=== PATIENT | female | born 1985 | race Caucasian/White ===

== ENCOUNTER 2017-02-04 13:38 | Emergency (ER) ==
[2017-02-04 13:43] VITALS: BMI 43.4
[2017-02-04 14:02] LABS: BILIRUBIN,URINE Negative (NEGATIVE); KETONES,URINE Negative (NEGATIVE); LEUKOCYTE ESTERASE ,URINE Trace (NEGATIVE); NITRITE,URINE Negative (NEGATIVE); PROTEIN,URINE 1+ (NEGATIVE); URINE, BLOOD Trace-intact (NEGATIVE)
[2017-02-04 14:03] LABS: ADD URINE MICROSCOPIC YES
[2017-02-04 14:04] LABS: URINE PREGNANCY INTERNAL QC INTERNAL QC VALID
--- NOTE | 2017-02-04 14:04 | ED.PDOC ---
General ED Provider: Dr. CANDIS LE JR Chief Complaint: Nausea/Vomiting Stated Complaint: ate russian food yesterday then late last nite developed -- chiils with n/v and diarrhea--vomited 5 times last nite--diarrhea today--also had abd pain to umbilicus [ End ]101.8 125 20 96 8/10 Time Seen by Physician: 13:58 Mode of Arrival: Walk-In Information Source: Patient Exam Limitations: No limitations Nursing and Triage Documentation Reviewed and Agree: No Review of Systems - Review Of Systems Constitutional: Reports: Chills, Fever, Malaise, Weakness Eyes: Reports: No symptoms Ears, Nose, Mouth, Throat: Reports: No symptoms Respiratory: Reports: No symptoms Cardiac: Reports: No symptoms GI: Reports: Abdominal pain, Diarrhea, Nausea, Vomiting : Reports: No symptoms Musculoskeletal: Reports: No symptoms Skin: Reports: No symptoms Neurological: Reports: No symptoms Endocrine: Reports: No symptoms Hematologic/Lymphatic: Reports: No symptoms All Other Systems: Other Past Medical History - Past Medical History Previously Healthy: Yes Endocrine: Reports: None Cardiovascular: Reports: None Respiratory: Reports: None Hematological: Reports: None Gastrointestinal: Reports: None Genitourinary: Reports: None Neuro/Psych: Reports: None Musculoskeletal: Reports: None Cancer: Reports: None Last Menstrual Period: december 13 - Surgical History General Surgical History: Reports: ( october 08, 2016) - Family History Family History: Reports: None - Social History Smoking Status: Former smoker Hx Substance Use: No Alcohol Screening: None Physical Exam - Physical Exam Appearance: Well-appearing, Obese Ill-appearing: Mild Pain Distress: Mild Eyes: ARIAN, EOMI, Conjunctiva clear ENT: Ears normal, Nose normal, Oropharynx normal Neck: Supple Respiratory: Airway patent, Breath sounds clear, Breath sounds equal, Respirations nonlabored Cardiovascular: RRR, Pulses normal, No rub, No murmur GI/: Soft, Tender, Bowel sounds hyperactive Musculoskeletal: Normal strength, ROM intact, No edema, No calf tenderness Skin: Warm, Dry, Normal color Neurological: Sensation intact, Motor intact, Reflexes intact, Cranial nerves intact, Alert, Oriented Psychiatric: Affect appropriate, Mood appropriate Critical Care Note - Critical Care Note Total Time (mins): 15 Course - Course Hematology/Chemistry: 02/04/17 14:05 02/04/17 14:05 Orders, Labs, Meds: Lab Review 02/04/17 02/04/17 13:55 14:05 WBC 10.30 H RBC 4.31 Hgb 12.6 Hct 36.0 L MCV 83.5 MCH 29.2 MCHC 35.0 RDW Coeff of Faviola 13.1 Plt Count 212 Immature Gran % (Auto) 0.4 Neut % (Auto) 91.2 Lymph % (Auto) 5.2 L [place] % (Auto) 3.1 Eos % (Auto) 0.0 Baso % (Auto) 0.1 Immature Gran # (Auto) 0.0 Neut # 9.4 H Lymph # 0.5 L [place] # 0.3 L Eos # 0.0 Baso # 0.0 Sodium 139 Potassium 3.4 L Chloride 105 Carbon Dioxide 22 Anion Gap 15.4 BUN 9 Creatinine 0.63 Estimated GFR (MDRD) 109.00 BUN/Creatinine Ratio 14.28 Glucose 111 H Lactic Acid 10.5 Calcium 9.2 Total Bilirubin 0.83 AST 12 L ALT 15 Alkaline Phosphatase 90 Total Protein 7.8 Albumin 3.7 Globulin 4.1 Albumin/Globulin Ratio 0.90 Amylase 44 Lipase 26 Procalcitonin < 0.05 Urine Color Yellow Urine Clarity Clear Urine pH 7.0 Ur Specific [place] 1.020 Urine Protein 1+ Urine Glucose (UA) Negative Urine Ketones Negative Urine Blood Trace-intact Urine Nitrite Negative Urine Bilirubin Negative Urine Urobilinogen 0.2 Ur Leukocyte Esterase Trace Urine Microscopic RBC 2-5 Urine Microscopic WBC 2-5 Ur Squamous Epith Cells 10-20 Urine Bacteria 1+ Urine Test Negative H. pylori IgG Antibody Positive Orders Category Date Time Status ED CODING QUALITY ANALYST APPLIED .ONCE EMERGENCY 02/04/17 13:54 Active ED IV/MEDIPORT/POWERPORT .ONCE EMERGENCY 02/04/17 13:53 Active ED VITAL SIGNS Q1HR EMERGENCY 02/04/17 13:54 Active AMYLASE Stat LAB 02/04/17 14:05 Completed BLOOD CULTURE Stat LAB 02/04/17 14:05 Received CBC W/ AUTO DIFF Stat LAB 02/04/17 14:05 Completed COMPREHENSIVE METABOLIC PANEL Stat LAB 02/04/17 14:05 Completed H. PYLORI SCREEN Stat LAB 02/04/17 14:05 Completed LACTIC ACID Stat LAB 02/04/17 14:05 Completed LIPASE Stat LAB 02/04/17 14:05 Completed PROCALCITONIN Stat LAB 02/04/17 14:05 Completed STOOL CULTURE Stat LAB 02/04/17 Ordered URINALYSIS C & S IF INDICATED Stat LAB 02/04/17 13:55 Completed URINE CULTURE Stat LAB 02/04/17 13:55 Received URINE Stat LAB 02/04/17 13:55 Completed 0.9 % Sodium Chloride [Saline Flush] MEDS 02/04/17 13:53 Ordered 1 syr IVF PRN PRN Levofloxacin/D5w [Levaquin] 150 ml MEDS 02/04/17 14:28 Discontinued IV .STK-MED Levofloxacin/D5w [Levaquin] 750 mg MEDS 02/04/17 14:12 Discontinued Premix 150 ml D5w 1 bag IV ONCE Morphine Sulfate [Morphine 4 mg/ml Syringe] MEDS 02/04/17 15:17 Discontinued 4 mg IVP ONCE STA Sodium Chloride 0.9% [Sodium Chloride] 1,000 ml MEDS 02/04/17 15:[address] ABDOMEN/PELVIS WO CONTRAST Stat RADS 02/04/17 13:53 Completed Medications Generic Name Dose Route Start Last Admin Trade Name Freq PRN Reason Stop Dose Admin Sodium Chloride 1 syr 02/04/17 13:53 02/04/17 14:29 Saline Flush IVF 1 syr PRN PRN Administration To flush IV Discontinued Medications Generic Name Dose Route Start Last Admin Trade Name Freq PRN Reason Stop Dose Admin Levofloxacin/Dextrose 750 mg/ 150 mls @ 100 mls/hr 02/04/17 14:12 02/04/17 14 :29 Dextrose IV 02/04/17 15:41 100 mls/hr ONCE STA Administration Sodium Chloride 1,000 mls @ 1,000 mls/hr 02/04/17 15:17 02/04/17 14:15 Sodium Chloride IV 02/04/17 16:16 1,000 mls/hr BOLUS STA Administration Morphine Sulfate 4 mg 02/04/17 15:17 02/04/17 15:28 Morphine 4 Mg/Ml Syringe IVP 02/04/17 15:18 4 mg ONCE STA Administration Vital Signs: Temp Pulse Resp BP Pulse Ox 02/04/17 14:22 99.9 F H 112 H 20 118/77 95 02/04/17 13:39 101.8 F H 125 H 20 133/78 96 Departure - Departure Time of Disposition: 15:11 Disposition: HOME SELF-CARE Discharge Problem: Nausea, Vomiting, Gastroenteritis, Helicobacter positive gastritis Instructions: Gastroenteritis (ED), Helicobacter Pylori (ED) Condition: Good Pt referred to PMD for follow-up: Yes Additional Instructions: zofran for nausea clear liquids for 8-12 hours after vomiting plenty of fluids - avoid work until loose stools resolved recheck PMD discuss helicobacter and plan care before taking prevpac may use kristofer-bismol for loose stools Prescriptions: Ondansetron HCl [Zofran Tab] 4 mg PO QID PRN #12 tablet PRN Reason: Nausea / Vomiting Allergies/Adverse Reactions: Allergies No Known Allergies Allergy (Unverified 02/04/17 13:44) Home Medications: Ambulatory Orders Ondansetron HCl [Zofran Tab] 4 mg PO QID PRN #12 tablet 02/04/17
[2017-02-04 14:09] LABS: BACTERIA,URINE 1+ (NOT PRESENT)
[2017-02-04] MEDS ORDERED: LEVAQUIN 750 MG in PREMIX 150 ML D5W 1 BAG IV STA (14:12)
[2017-02-04 14:14] LABS: BASOPHILS % (AUTO) 0.1 % (0.0-3.0); HEMOGLOBIN 12.6 g/dl (12.0-16.0); IMMATURE GRANULOCYTE % (AUTO) 0.4 % (0.0-5.0); LYMPHOCYTES # (AUTO) 0.5 K/uL (0.60-3.4); LYMPHOCYTES % (AUTO) 5.2 (10.0-50.0); MEAN CORPUSCULAR HEMOGLOBIN 29.2 pg (27.0-31.0); MEAN CORPUSCULAR VOLUME 83.5 fl (81.0-99.0); MONOCYTES # (AUTO) 0.3 K/uL (0.4-2.0); MONOCYTES % (AUTO) 3.1 (0-10); NEUTROPHILS # (AUTO) 9.4 K/ul (2.0-6.9); NEUTROPHILS % (AUTO) 91.2; PLATELET COUNT 212 10^3/uL (140-440); RED BLOOD COUNT 4.31 10^6/ul (4.20-5.40)
[2017-02-04 14:24] VITALS: TEMP 99.9
[2017-02-04 14:26] LABS: H. PYLORI ANTIBODY POSITIVE (NEGATIVE); H.PYLORI INTERNAL QC INTERNAL QC VALID
[2017-02-04] MEDS ORDERED: LEVAQUIN 150 ML IV ONE (14:28)
[2017-02-04 14:34] LABS: ALBUMIN 3.7 g/dL (3.4-5.0); ALBUMIN/GLOBULIN RATIO 0.9; ANION GAP 15.4; BILIRUBIN,TOTAL 0.83 mg/dL (0.00-1.20); BUN/CREATININE RATIO 14.28; CALCIUM 9.2 mg/dL (8.2-10.2); CREATININE 0.63 mg/dL (0.60-1.30); POTASSIUM 3.4 mmol/L (3.5-5.10); TOTAL PROTEIN 7.8 g/dL (6.4-8.2)
--- NOTE | 2017-02-04 14:39 | CT ---
EXAM: CT of the abdomen pelvis without contrast History: Abdominal pain. Technique: Multiplanar CT images through the abdomen pelvis were obtained without the administratio n of IV contrast Findings: Lung bases are free of consolidation. No acute osseous abnormalities. Status post cholecystectomy. No focal liver or splenic lesions. No peripancreatic inflammation. A drenal glands are unremarkable. No renal stones and no hydronephrosis. Appendix is not seen. No b ladder wall thickening. There are fluid filled nondilated loops of small bowel. There is fluid see n within the colon. No bowel obstruction. No bladder wall thickening. 4.7 mm calculus seen within the base of the bladder. Adnexal structures appear appropriate for patient's age. Impression: 1. Mild gastroenterocolitis. No bowel obstruction. 2. Bladder calculus.
[2017-02-04] MEDS ORDERED: MORPHINE 4 MG/ML SYRINGE IVP STA (15:17)
[2017-02-04] MEDS ORDERED: SODIUM CHLORIDE 1,000 ML IV STA (15:17)
[2017-02-04 16:43] VITALS: BP 121/71
== END 2017-02-04 16:55 | disposition home or self-care (01) ==
LOC: ED 13:38
DX: K52.9 Noninfective gastroenteritis and colitis, unspecified (principal); K29.70 Gastritis, unspecified, without bleeding; B96.81 Helicobacter pylori [H. pylori] as the cause of diseases classified elsewhere
CPT/HCPCS: 36415; 80053; 81001; 81025; 82150; 83605; 83690; 84145; 85025; 86677; 87040; 87086; 96361; 96365; 96375; 99283

== ENCOUNTER 2017-07-04 13:01 | Outpatient (CLI) | END 2017-07-04 13:02 | disposition home or self-care (01) | LOC: LAB 13:01 | PROVIDERS: ATTEND Emergency Medicine | DX: J06.9 Acute upper respiratory infection, unspecified (principal) | CPT/HCPCS: 87502; 87651 ==

== ENCOUNTER 2017-12-09 17:31 | Inpatient (IN) ==
[2017-12-09] MEDS ORDERED: ROCEPHIN 1 GM in SODIUM CHLORIDE 50 ML IV STA (17:38)
[2017-12-09] MEDS ORDERED: SODIUM CHLORIDE 1,000 ML IV STA (17:38)
[2017-12-09] MEDS ORDERED: ROCEPHIN ONE (17:48)
--- NOTE | 2017-12-09 18:37 | ED.PDOC ---
General ED Provider: Dr. ALICIA CLEMNOS-ER Chief Complaint: Fever Stated Complaint: im hurting and ruinning a high fever Time Seen by Physician: 18:36 Mode of Arrival: Walk-In Information Source: Patient Exam Limitations: No limitations Primary Care Provider: JOSE [facility]ILL[facility] Nursing and Triage Documentation Reviewed and Agree: Yes Does patient meet sepsis criteria?: Yes If yes, has appropriate treatment been initiated?: Yes System Inflammatory Response Syndrome: Temp 101F or Greater, Pulse >90 BPM Sepsis Protocol: For patient's 13 years and over: Temp is 96.8 and below OR 101 and greater Pulse >90 BPM Resp >20/minute Acutely Altered Mental Status Are patient's symptoms suggestive of a new infection, such as: -Pneumonia -Skin, Soft Tissue -Endocarditis -UTI -Bone, Joint Infection -Implantable Device -Acute Abdominal Infection -Wound Infection -Meningitis -Blood Stream Catheter Infection -Unknown Complaint Exam - UTI Female Complaint/Exam Patient Complains of: Reports: Painful urination Onset/Duration: 24 hrs Symptoms Are: Still present Initial Severity: Mild Current Severity: Mild Location of Pain: Reports: Flank Associated Signs and Symptoms: Reports: Fever, Chills, Flank pain Patient Rh Status: Unknown CVA Tenderness: Yes Suprapubic Tenderness: No Differential Diagnoses: Pyelonephritis, Ureteral Calculus Review of Systems - Review Of Systems Constitutional: Reports: Chills, Fever Eyes: Reports: No symptoms Ears, Nose, Mouth, Throat: Reports: No symptoms Respiratory: Reports: No symptoms Cardiac: Reports: No symptoms GI: Reports: No symptoms : Reports: No symptoms Musculoskeletal: Reports: No symptoms Skin: Reports: No symptoms Neurological: Reports: No symptoms Endocrine: Reports: No symptoms Hematologic/Lymphatic: Reports: No symptoms All Other Systems: Reviewed and Negative Past Medical History - Past Medical History Previously Healthy: Yes Endocrine: Reports: None Cardiovascular: Reports: None Respiratory: Reports: None Hematological: Reports: None Gastrointestinal: Reports: None Genitourinary: Reports: None Neuro/Psych: Reports: None Musculoskeletal: Reports: None Cancer: Reports: None Last Menstrual Period: 10/13/17 - Surgical History General Surgical History: Reports: ( october 08, 2016) - Family History Family History: Reports: None - Social History Smoking Status: Never smoker Hx Substance Use: No Alcohol Screening: Occasionally - Immunizations Tetanus Shot up to Date: Yes Physical Exam - Physical Exam Appearance: Well-appearing, Ill-appearing Pain Distress: Mild Eyes: ARIAN, EOMI, Conjunctiva clear ENT: Ears normal, Nose normal, Oropharynx normal Neck: Supple Respiratory: Airway patent, Breath sounds clear, Breath sounds equal, Respirations nonlabored Cardiovascular: RRR GI/: Soft, Nontender, No masses, Bowel sounds normal, No Organomegaly Musculoskeletal: Normal strength Skin: Warm, Dry, Normal color Neurological: Sensation intact, Motor intact, Reflexes intact, Cranial nerves intact, Alert, Oriented Psychiatric: Affect appropriate, Mood appropriate Interpretation - Radiology Interpretation Radiology Interpretation By: Radiologist Radiology Results: No acute changes Exam Interpreted: CT Scan Physician Notification - Case Discussed Physician Notified: dr neumann Time of Notification: 18:53 Critical Care Note - Critical Care Note Total Time (mins): 0 Course - Course Hematology/Chemistry: 12/11/17 05:15 12/11/17 05:15 Orders, Labs, Meds: Lab Review 12/09/17 12/09/17 12/09/17 17:45 17:45 17:45 WBC 16.46 H RBC 4.62 Hgb 12.5 Hct 36.6 L MCV 79.2 L MCH 27.1 MCHC 34.2 RDW Coeff of Faviola 14.6 Plt Count 176 Immature Gran % (Auto) 0.3 Neut % (Auto) 85.0 Lymph % (Auto) 7.0 L [place] % (Auto) 7.5 Eos % (Auto) 0.1 Baso % (Auto) 0.1 Immature Gran # (Auto) 0.1 Neut # (Auto) 14.0 H Lymph # (Auto) 1.2 [place] # (Auto) 1.2 Eos # (Auto) 0.0 Baso # (Auto) 0.0 Sodium 133 L Potassium 3.3 L Chloride 101 Carbon Dioxide 21 Anion Gap 14.3 BUN 9 Creatinine 0.74 Estimated GFR (MDRD) 90.00 BUN/Creatinine Ratio 12.16 Glucose 126 H Lactic Acid 15.0 Calcium 8.9 Total Bilirubin 1.3 H AST 11 L ALT 15 Alkaline Phosphatase 82 Total Protein 7.8 Albumin 3.4 Globulin 4.4 Albumin/Globulin Ratio 0.77 Amylase 29 Lipase 12 Procalcitonin Urine Color Urine Clarity Urine pH Ur Specific [place] Urine Protein Urine Glucose (UA) Urine Ketones Urine Blood Urine Nitrite Urine Bilirubin Urine Urobilinogen Ur Leukocyte Esterase Urine Microscopic WBC Ur Squamous Epith Cells Urine Test 12/09/17 12/09/17 12/09/17 17:45 18:01 18:01 WBC RBC Hgb Hct MCV MCH MCHC RDW Coeff of Faviola Plt Count Immature Gran % (Auto) Neut % (Auto) Lymph % (Auto) [place] % (Auto) Eos % (Auto) Baso % (Auto) Immature Gran # (Auto) Neut # (Auto) Lymph # (Auto) [place] # (Auto) Eos # (Auto) Baso # (Auto) Sodium Potassium Chloride Carbon Dioxide Anion Gap BUN Creatinine Estimated GFR (MDRD) BUN/Creatinine Ratio Glucose Lactic Acid Calcium Total Bilirubin AST ALT Alkaline Phosphatase Total Protein Albumin Globulin Albumin/Globulin Ratio Amylase Lipase Procalcitonin 0.34 Urine Color Yellow Urine Clarity Cloudy Urine pH 6.0 Ur Specific [place] 1.025 Urine Protein 2+ Urine Glucose (UA) Negative Urine Ketones Negative Urine Blood 2+ Urine Nitrite Positive Urine Bilirubin Negative Urine Urobilinogen 2.0 Ur Leukocyte Esterase 2+ Urine Microscopic WBC Tntc Ur Squamous Epith Cells Not present Urine Test Negative Orders Category Date Time Status ADMIT PATIENT INPATIENT .TO [facility] (NON-MONITORED ADMISSION 12/09/17 18: 54 Active BED) ACTIVITY .BR with BRP CARE 12/09/17 18:56 Active GIVE HS SNACK 2100 CARE 12/09/17 18:58 Active INTAKE & OUTPUT Q8HR CARE 12/09/17 18:56 Active VITAL SIGNS Q4HR CARE 12/09/17 18:56 Active HS SNACK DIETARY 12/09/17 Dinner Completed ED IV/MEDIPORT/POWERPORT .ONCE EMERGENCY 12/09/17 17:38 Active AMYLASE Stat LAB 12/09/17 17:45 Completed BLOOD CULTURE (ED ONLY) Stat LAB 12/09/17 17:45 Completed CBC W/ AUTO DIFF DAILY@0600 LAB 12/10/17 07:14 Completed CBC W/ AUTO DIFF DAILY@0600 LAB 12/11/17 05:15 Completed CBC W/ AUTO DIFF Stat LAB 12/09/17 17:45 Completed COMPREHENSIVE METABOLIC PANEL DAILY@0600 LAB 12/10/17 07:14 Completed COMPREHENSIVE METABOLIC PANEL DAILY@0600 LAB 12/11/17 05:15 Completed COMPREHENSIVE METABOLIC PANEL Stat LAB 12/09/17 17:45 Completed LACTIC ACID Stat LAB 12/09/17 17:45 Completed LIPASE Stat LAB 12/09/17 17:45 Completed PROCALCITONIN Stat LAB 12/09/17 17:45 Completed URINALYSIS C & S IF INDICATED Stat LAB 12/09/17 18:01 Completed URINE CULTURE Stat LAB 12/09/17 18:10 Completed URINE Stat LAB 12/09/17 18:01 Completed 0.9 % Sodium Chloride [Saline Flush] MEDS 12/09/17 17:38 Discontinued 1 syr IVF PRN PRN Acetaminophen [Tylenol] MEDS 12/09/17 18:54 Discontinued 650 mg PO ONCE STA Acetaminophen [Tylenol] MEDS 12/09/17 18:56 Discontinued 650 mg PO Q4H PRN Ceftriaxone Sodium [Rocephin] MEDS 12/09/17 17:48 Discontinued 1 gm .ROUTE .STK-MED ONE Ceftriaxone Sodium [Rocephin] 1 gm MEDS 12/10/17 09:00 Discontinued 0.9 % Sodium Chloride [Sodium Chloride] 50 ml IV DAILY Ceftriaxone Sodium [Rocephin] 1 gm MEDS 12/09/17 17:38 Discontinued 0.9 % Sodium Chloride [Sodium Chloride] 50 ml IV ONCE Enoxaparin Sodium [Lovenox] MEDS 12/10/17 09:00 Discontinued 40 mg SUBCUT DAILY Levofloxacin/D5w [Levaquin] 500 mg MEDS 12/09/17 18:56 Discontinued Premix 100 ml D5w 1 bag IV DAILY Morphine Sulfate [Morphine 2 mg/ml Syringe] MEDS 12/09/17 18:58 Discontinued 2 mg IVP Q4H PRN Ondansetron HCl/Pf [Zofran 4 mg/2 ml] MEDS 12/09/17 18:58 Discontinued 4 mg IVP Q4HR PRN Sodium Chloride 0.9% [Sodium Chloride] 1,000 ml MEDS 12/09/17 17:38 Discontinued IV 125 mls/hr RESUSCITATION STATUS Routine OTHERS 12/09/17 18:[address] ABDOMEN/PELVIS WO CONTRAST Stat RADS 12/09/17 17:38 Completed Medications Discontinued Medications Generic Name Dose Route Start Last Admin Trade Name Freq PRN Reason Stop Dose Admin Acetaminophen 650 mg 12/09/17 18:54 12/09/17 19:16 Tylenol PO 12/09/17 18:55 650 mg ONCE STA Administration Acetaminophen 650 mg 12/09/17 18:56 12/10/17 22:21 Tylenol PO 650 mg Q4H PRN Administration Mild Pain Enoxaparin Sodium 40 mg 12/10/17 09:00 12/12/17 08:43 Lovenox SUBCUT 40 mg DAILY FRANCISCO Administration Ceftriaxone Sodium 1 gm/ 50 mls @ 75 mls/hr 12/09/17 17:38 12/09/17 17:51 Sodium Chloride IV 12/09/17 18:17 75 mls/hr ONCE STA Administration Sodium Chloride 1,000 mls @ 125 mls/hr 12/09/17 17:38 12/09/17 17:51 Sodium Chloride IV 12/10/17 01:37 125 mls/hr .Q8H STA Administration Ceftriaxone Sodium 1 gm/ 50 mls @ 75 mls/hr 12/10/17 09:00 12/10/17 08:09 Sodium Chloride IV 75 mls/hr DAILY FRANCISCO Administration Levofloxacin/Dextrose 500 mg/ 100 mls @ 100 mls/hr 12/09/17 18:56 12/09/17 20 :44 Dextrose IV 100 mls/hr DAILY FRANCISCO Administration Sodium Chloride 1,000 mls @ 125 mls/hr 12/10/17 03:20 12/10/17 03:20 Sodium Chloride IV 125 mls/hr .Q8H FRANCISCO Administration Levofloxacin/Dextrose 500 mg/ 100 mls @ 100 mls/hr 12/10/17 21:00 12/10/17 21 :41 Dextrose IV 100 mls/hr BEDTIME FRANCISCO Administration Sodium Chloride 1,000 mls @ 70 mls/hr 12/10/17 10:00 12/11/17 20:43 Sodium Chloride IV 70 mls/hr .[id number] FRANCISCO Administration Cefepime HCl 1 gm/ Sodium 50 mls @ 50 mls/hr 12/10/17 21:00 Chloride IV Q12HR FRANCISCO Cefepime HCl 1 gm/ Sodium 50 mls @ 50 mls/hr 12/10/17 21:00 12/12/17 08:41 Chloride IV 50 mls/hr Q12HR FRANCISCO Administration Morphine Sulfate 2 mg 12/09/17 18:58 Morphine 2 Mg/Ml Syringe IVP Q4H PRN MODERATE PAIN Ondansetron HCl 4 mg 12/09/17 18:58 12/09/17 20:39 Zofran 4 Mg/2 Ml IVP 4 mg Q4HR PRN Administration Nausea / Vomiting Pantoprazole Sodium 40 mg 12/10/17 08:30 12/12/17 05:34 Protonix PO 40 mg QDAC FRANCISCO Administration Potassium Chloride 40 meq 12/10/17 08:22 12/10/17 08:31 K-Dur PO 12/10/17 08:23 40 meq ONCE STA Administration Sodium Chloride 1 syr 12/09/17 17:38 12/09/17 17:51 Saline Flush IVF 1 syr PRN PRN Administration To flush IV Vital Signs: Temp Pulse Resp BP Pulse Ox 12/09/17 19:16 104.7 F H 119 H 20 99 12/09/17 17:32 103.5 F H 131 H 18 121/87 97 Departure - Departure Time of Disposition: 18:53 Disposition: ADMITTED INPATIENT Discharge Problem: Pyelonephritis Condition: Good Pt referred to PMD for follow-up: No IPMP verified?: No Allergies/Adverse Reactions: Allergies No Known Allergies Allergy (Unverified 12/09/17 17:33) Home Medications: Ambulatory Orders Levofloxacin [Levaquin] 500 mg PO QDAC 5 Days #5 tablet 12/12/17 Disposition Discussed With: Patient
--- NOTE | 2017-12-09 18:48 | CT ---
EXAM: CT of the abdomen and pelvis without contrast. HISTORY: Flank pain. Fever. PROCEDURE: Contiguous axial CT images of the abdomen and pelvis without contrast with coronal and sa gittal reformats. FINDINGS: The liver is normal in appearance. The gallbladder is surgically absent. The pancreas, sp joanne and adrenal glands are normal in appearance. There is bilateral renal cortical scarring. There i s a fluid density cyst in the right kidney. There are nonobstructive calcifications in both kidneys measuring up to 2 mm. No hydronephrosis. The ureters are incompletely visualized. There is right per inephric inflammatory stranding suspicious for pyelonephritis. The evaluation for pyelonephritis is limited without IV contrast. The abdominal aorta is within normal limits in diameter. There is divert iculosis of the colon with no evidence of diverticulitis. The appendix is surgically absent. No free fluid or free air in the abdomen or pelvis. The bladder is minimally filled with no abnormality ident ified. The uterus is unremarkable. There are degenerative changes in the spine. Impression: Right perinephric inflammatory stranding, suspicious for pyelonephritis. Recommend corre lation with urinary analysis. Nonobstructive bilateral nephrolithiasis as described. The ureters are incompletely visualized and a non-obstructing ureterolith cannot be excluded. Bilateral renal cortical scarring. Simple right renal cyst. Diverticulosis of the colon. Cholecystectomy. Appendectomy.
[2017-12-09] MEDS ORDERED: TYLENOL PO STA (18:54)
[2017-12-09] MEDS ORDERED: LEVAQUIN 500 MG in PREMIX 100 ML D5W 1 BAG IV SCH (18:56)
[2017-12-09] MEDS ORDERED: ZOFRAN 4 MG/2 ML IVP PRN (18:58)
[2017-12-09] MEDS ORDERED: MORPHINE 2 MG/ML SYRINGE IVP PRN (18:58)
[2017-12-09 20:19] VITALS: BMI 44.9
[2017-12-09] MEDS ORDERED: LEVAQUIN 100 ML IV ONE (20:35)
[2017-12-10] MEDS: TYLENOL PO PRN ×4 (00:33→22:21)
[2017-12-10] MEDS ORDERED: SODIUM CHLORIDE 1,000 ML IV SCH (03:20)
[2017-12-10] MEDS: LOVENOX SUBCUT SCH (08:11)
[2017-12-10] MEDS ORDERED: K-DUR PO STA (08:22)
[2017-12-10] MEDS: PROTONIX PO SCH (08:31)
[2017-12-10] MEDS ORDERED: ROCEPHIN 1 GM in SODIUM CHLORIDE 50 ML IV SCH (09:00)
[2017-12-10] MEDS: SODIUM CHLORIDE 1,000 ML IV SCH (15:51)
[2017-12-10] MEDS: MAXIPIME 1 GM in SODIUM CHLORIDE 50 ML IV SCH (20:21)
[2017-12-10] MEDS ORDERED: MAXIPIME 1 GM in SODIUM CHLORIDE 50 ML IV SCH (21:00)
[2017-12-10] MEDS ORDERED: LEVAQUIN 500 MG in PREMIX 100 ML D5W 1 BAG IV SCH (21:00)
[2017-12-11] MEDS: PROTONIX PO SCH (06:19)
[2017-12-11] MEDS: SODIUM CHLORIDE 1,000 ML IV SCH ×2 (06:20→20:43)
[2017-12-11] MEDS: LOVENOX SUBCUT SCH (08:34)
--- NOTE | 2017-12-11 09:55 | HP ---
DATE OF SERVICE: 12/09/17 CHIEF COMPLAINT: Abdominal and flank pain. HISTORY OF PRESENT ILLNESS: This is a 32-year-old female who came to the emergency room complaining of fever , chills, and left-sided flank pain. The patient's temperature was 103.5. She was seen by Dr. Arreola in the emergency room. White count 16,000 with left shift. Chemistry - potassium 3.3. Urine was cloudy, 2+ blood. Nitrites positive. Leukocyte esterase. CT abdomen and pelvis done which showed right perinephric stranding suspicious for pyelonephritis. The patient was admitted to the hospital for IV antibiotics, pain medication and for hydration. REVIEW OF SYSTEMS: CONSTITUTIONAL: Weakness, tiredness. No fever, no chills. HEENT: Normal. ENDOCRINE: No weight gain; no weight loss. CVS: No chest pain. No PND, no orthopnea. No shortness of breath. No PND, no orthopnea. RESPIRATORY: No cough, no congestion. No hemoptysis. GI: Right-sided flank pain. No nausea, no vomiting. No melena. : Burning with frequency of urination. MUSCULOSKELETAL: No joint swelling. PSYCHIATRIC: Not anxious. No depression. No suicidal thoughts. No homicidal thoughts. SKIN: Intact, no open lesions. PAST MEDICAL HISTORY: None PAST SURGICAL HISTORY: , 10/08/16 PERSONAL HISTORY: Does not smoke or drink. No alcohol use. No illicit drug use. FAMILY HISTORY: Not significant. MEDICATIONS: (Home) NONE ALLERGIES: NKDA PHYSICAL EXAMINATION: V/S: Blood pressure 112/68, respiratory rate 20, heart rate 112, temperature 103.1. GENERAL: Sick looking lady laying in the bed and not in any distress. HEENT: Normocephalic, atraumatic. Mucosa dry. NECK: Supple. No JVD, no carotid bruit. No lymphadenopathy. LUNGS: Clear to auscultation. No rales or rhonchi. HEART: S1, S2 normal. No S3. No murmur, gallop or regurgitation. ABDOMEN: Soft, nontender. Bowel sounds active. No rigidity. No rebound or guarding. Right sided flank pain and CVA tenderness is present. EXTREMITIES: No cyanosis, clubbing or pedal edema. MUSCULOSKELETAL: No joint swelling. NEUROLOGIC: Awake, alert, oriented times three. No focal deficit. LYMPHATIC: No lymph nodes palpable. SKIN: Intact. LABS: White count 16.46, hemoglobin 12.5, hematocrit 36.6, platelet count 176. Sodium 133, potassium 3.3, chloride 101, bicarb 21, BUN 9, creatinine 0.74, glucose 126. ASSESSMENT: 1. ACUTE RIGHT-SIDED PYELONEPHRITIS 2. UROSEPSIS 3. HYPOKALEMIA 4. DEHYDRATION PLAN: 1. Admit patient to the regular floor. 2. IV fluids. 3. Rocephin 1 gm daily. 4. Levaquin 1 gm daily. 5. Tylenol p.r.n. 6. Replace potassium. TIME SPENT: MORE THAN 75 minutes MTDD
[2017-12-11] MEDS: MAXIPIME 1 GM in SODIUM CHLORIDE 50 ML IV SCH ×2 (10:02→20:43)
[2017-12-12] MEDS: PROTONIX PO SCH (05:34)
[2017-12-12] MEDS: MAXIPIME 1 GM in SODIUM CHLORIDE 50 ML IV SCH (08:41)
[2017-12-12] MEDS: LOVENOX SUBCUT SCH (08:43)
[2017-12-12 09:46] VITALS: BP 93/60; TEMP 97.8
--- NOTE | 2017-12-13 10:40 | PN ---
DATE OF SERVICE: 12/11/17 SUBJECTIVE: The patient was admitted with the right sided acute pyelonephritis organism e- coli. Still had fever yesterday night 101.6. Still complains of right flank pain and has some nausea but no vomiting. REVIEW OF SYSTEMS: CONSTITUTIONAL: No fever, no chills. HEENT: Normal. ENDOCRINE: No weight gain, no weight loss. CVS: No angina symptoms. No CHF symptoms. No palpitations. No atypical chest pain for CAD. No shortness of breath. No PND, no orthopnea. RESPIRATORY: No cough, no hemoptysis. GI: No nausea, no vomiting. No abdominal pain. : No hematuria. No polyuria. MUSCULOSKELETAL: No joint swelling. PSYCHIATRIC: Not anxious. No depression. No suicidal thoughts. No homicidal thoughts. SKIN: Intact. No rash. PHYSICAL EXAMINATION: V/S: Blood pressure 104/69, respiratory rate 16, heart rate 84, temperature 98.4 with saturation 96%. HEENT: Normocephalic, atraumatic. Mucosa dry. Pallor positive. No icterus. NECK: Supple. No JVD, no carotid bruit. No lymphadenopathy. LUNGS: Clear to auscultation. No rales or rhonchi. HEART: S1, S2 normal. No S3. No murmur, gallop or regurgitation. ABDOMEN: Soft, nontender. Bowel sounds active. No rigidity. No rebound or guarding. Right sided CVA tenderness. Right flank tenderness present. EXTREMITIES: No cyanosis, clubbing or pedal edema. MUSCULOSKELETAL: No joint swelling. NEUROLOGIC: Awake, alert, oriented times three. No focal deficit. LYMPHATIC: No lymph nodes palpable. SKIN: Intact. LABS: WBC 9.18, hgb 10.3, hct 30.4, plt count 138, sodium 136, potassium 3.6, chloride 106, bicarb 23, BUN 6, creatinine 0.60 and glucose 96. ASSESSMENT: 1. Acute right sided pyelonephritis organism e-coli sensitive to the Cefepime 2. Anemia 3. Hypokalemia which is better PLAN: 1. Will start the Levaquin 2. Continue Cefepime 1 gram daily 3. IV fluids 4. Lovenox for the DVT prophylaxis 5. Morphine PRN TIME SPENT: More than 35 minutes MTDD
--- NOTE | 2017-12-13 13:39 | DS ---
DATE OF SERVICE: 12/12/17 FINAL DIAGNOSIS: 1. Acute right sided pyelonephritis 2. Urosepsis 3. Anemia most likely dilutional 4. Hypokalemia which is better 5. UTI organism e-coli, blood cultures are negative DISCHARGE INSTRUCTIONS: Discharge the patient home. Followup at the [facility] within 3-4 days. MEDICATIONS AT DISCHARGE/NEW PRESCRIPTIONS: Bactrim is resistant to the e-coli so we will be giving the patient Levaquin 500mg daily for 5 days. DIET INSTRUCTIONS: Regular ACTIVITY: As much as tolerated. DISEASE SPECIFIC EDUCATION: Urinary tract infection Pyelonephritis been discussed and verbalized understanding. HOSPITAL COURSE: Lynette Corey 32 year old female came to the emergency room with right sided flank pain, fever, chills and abdominal pain. Found that urine was positive for leukocyte esterase and nitrates. WBC was 16,000 was left shift. The patient temperature was 103.5. CT of abdomen and pelvis showed the right sided acute pyelonephritis. Admitted to the hospital and started initially Rocephin and Levaquin. The patient was still having the fever so Rocephin was stopped and started of the Cefepime 1 gram twice a day. Finally break from the fever on December 10 at 22:00 which was the last fever documented during the hospital stay 101.9. After that the temperature was 99.8, 98.7 and 98.9. Pain was better in the right flank area with no fever or chills. No nausea or vomiting. Hgb did drop from 12.5 to 10.3 most likely from the IV fluids and the dehydration. As that patient been up and about and doing good the patient being discharged home. [facility]: [facility] [address] [facility]
--- NOTE | 2017-12-13 13:51 | PN ---
DATE OF SERVICE: 12/10/17 SUBJECTIVE: The patient had a fever after the admission of 100.6 than 100.4. Then today around 10:00am the patient had temperature of 103.1. The patient is getting the Rocephin and the Levaquin. Blood culture and urine culture did not show no organism at this time. REVIEW OF SYSTEMS: CONSTITUTIONAL: No fever, no chills. HEENT: Normal. ENDOCRINE: No weight gain, no weight loss. CVS: No angina symptoms. No CHF symptoms. No palpitations. No atypical chest pain for CAD. No shortness of breath. No PND, no orthopnea. RESPIRATORY: No cough, no hemoptysis. GI: No nausea, no vomiting. No abdominal pain. : No hematuria. No polyuria. MUSCULOSKELETAL: No joint swelling. PSYCHIATRIC: Not anxious. No depression. No suicidal thoughts. No homicidal thoughts. SKIN: Intact. No rash. PHYSICAL EXAMINATION: V/S: Blood pressure 112/68, respiratory rate 20, heart rate 112, temperature 103.1. GENERAL: Sick looking lady laying in the bed and not in any distress. HEENT: Normocephalic, atraumatic. Mucosa dry. NECK: Supple. No JVD, no carotid bruit. No lymphadenopathy. LUNGS: Clear to auscultation. No rales or rhonchi. HEART: S1, S2 normal. No S3. No murmur, gallop or regurgitation. ABDOMEN: Soft, nontender. Bowel sounds active. No rigidity. No rebound or guarding. Right sided flank pain and CVA tenderness is present. EXTREMITIES: No cyanosis, clubbing or pedal edema. MUSCULOSKELETAL: No joint swelling. NEUROLOGIC: Awake, alert, oriented times three. No focal deficit. LYMPHATIC: No lymph nodes palpable. SKIN: Intact. LABS: Sodium 133, potassium 3.2, chloride 103, bicarb 21, BUN 7, creatinine 0.65, glucose 118, WBC 13.69, hgb 10.9, hct 32.2, plt count 144. ASSESSMENT: 1. Acute right sided pyelonephritis 2. Hypokalemia 3. Persistent fever 4. Anemia from hemodilution PLAN: 1. Change the Rocephin to the Cefepime 2. Continue the Levaquin 3. Tylenol PRN 4. IV fluids. TIME SPENT: More than 35 minutes MTDD
--- NOTE | 2017-12-15 08:56 | PCM.HOSP ---
- Initial Hospital Care [id number] 70 Minutes Bedside ([id number]): 12/09 - Subsequent Care [id number] 35 Minutes per Day ([id number]): 12/10,. 12/11 - Hospital Discharge [id number] More than 30 Minutes ([id number]): 12/12
== END 2017-12-12 10:14 | disposition home or self-care (01) | DRG 690 ==
LOC: ED 17:31 → MEDSURG B 19:21
PROVIDERS: ADMIT Emergency Medicine; ATTEND Emergency Medicine
DX: N10 Acute pyelonephritis (principal); R50.9 Fever, unspecified; R30.9 Painful micturition, unspecified; E87.6 Hypokalemia; E86.0 Dehydration; D64.9 Anemia, unspecified; N39.0 Urinary tract infection, site not specified; B96.20 Unspecified Escherichia coli [E. coli] as the cause of diseases classified elsewhere
CPT/HCPCS: 36415; 80053; 81001; 81025; 82150; 83605; 83690; 84145; 85025; 87040; 87086; 87186; 96361; 96365; 99283

== ENCOUNTER 2022-08-13 08:34 | Inpatient (IN) ==
[2022-08-13 08:38] VITALS: BMI 42.0
[2022-08-13] MEDS ORDERED: SODIUM CHLORIDE 1,000 ML IV STA (09:56)
[2022-08-13] MEDS ORDERED: TORADOL IVP ONE (09:56)
--- NOTE | 2022-08-13 10:01 | ED.PDOC ---
General ED Provider: Dr. LUCINDA LOVE MD Chief Complaint: Fever Stated Complaint: mild to mod off and on fever and NV for one day, w/ body aches, no injury, dry cough Time Seen by Provider: 08/13/22 09:19 Mode of Arrival: Walk-In Information Source: Patient Primary Care Provider: PAM BENAVIDES Nursing and Triage Documentation Reviewed and Agree: Yes Does patient meet sepsis criteria?: No System Inflammatory Response Syndrome: Not Applicable Sepsis Protocol: For patient's 13 years and over: Temp is 96.8 and below OR 101 and greater Pulse >90 BPM Resp >20/minute Acutely Altered Mental Status Are patient's symptoms suggestive of a new infection, such as: -Pneumonia -Skin, Soft Tissue -Endocarditis -UTI -Bone, Joint Infection -Implantable Device -Acute Abdominal Infection -Wound Infection -Meningitis -Blood Stream Catheter Infection -Unknown Review of Systems Review Of Systems Constitutional: Reports Fever and Malaise Eyes: Denies Vision change Ears, Nose, Mouth, Throat: Denies Throat pain Respiratory: Reports Cough; Denies Short of air Cardiac: Denies Chest pain GI: Reports Vomiting; Denies Abdominal pain : Denies Frequency Musculoskeletal: Reports Muscle pain Skin: Denies Rash or Cyanosis Neurological: Denies Cognitive dysfunction All Other Systems: Other [facility] Medical History (Updated 08/13/22 @ 12:24 by LUCINDA LOVE MD) Helicobacter pylori infection Social History History of recent travel: No Surgical History History of section (10/08/16) Status post cholecystectomy Female Reproductive History Menstrual Hx Hysterectomy: No Hx Tubal Ligation: No Physical Exam Physical Exam Appearance: Reports Ill-appearing Ill-appearing: Mild Pain Distress: None Eyes: Reports ARIAN, EOMI and Conjunctiva clear ENT: Reports Oropharynx normal Neck: Supple Respiratory: Reports Airway patent, Breath sounds clear and Breath sounds equal Cardiovascular: Reports RRR GI/: Reports Soft and Nontender Musculoskeletal: Reports ROM intact Skin: Reports Warm and Dry Neurological: Reports Alert and Oriented Psychiatric: Reports Affect appropriate Interpretation Radiology Interpretation Radiology Interpretation By: Radiologist Radiology Results: No acute changes Exam Interpreted: CXR Radiology Interpretation By: Radiologist Exam Interpreted: CT Scan Xray Comments: +pyelonephritis Critical Care Note Critical Care Note Total Critical Care Time (mins): 0 Course Course Hematology/Chemistry: 08/13/22 10:06 08/13/22 10:06 Orders, Labs, Meds: Lab Review 08/13/22 08/13/22 08/13/22 10:06 10:06 10:06 WBC 15.96 H RBC 4.24 Hgb 11.3 L Hct 33.9 L MCV 80.0 L MCH 26.7 L MCHC 33.3 RDW Coeff of Faviola 14.9 H Plt Count 175 Immature Gran % (Auto) 0.4 Neut % (Auto) 87.4 H Lymph % (Auto) 4.8 L [place] % (Auto) 7.3 Eos % (Auto) 0.0 Baso % (Auto) 0.1 Neut # (Auto) 13.9 H Lymph # (Auto) 0.8 [place] # (Auto) 1.2 Eos # (Auto) 0.0 Baso # (Auto) 0.0 Immature Gran # (Auto) 0.1 Sodium 134.0 L Potassium 2.87 L Chloride 101.6 Carbon Dioxide 24.1 Anion Gap 11.17 BUN 11.6 Creatinine 0.85 Estimated GFR (MDRD) 74.00 BUN/Creatinine Ratio 13.64 Glucose 150.3 H Lactic Acid 0.91 Calcium 8.21 L Total Bilirubin 1.37 H AST 25.5 ALT 22.1 Alkaline Phosphatase 84.3 Total Protein 7.47 Albumin 3.98 Globulin 3.49 Albumin/Globulin Ratio 1.14 Serum , Qual Urine Color Urine Clarity Urine pH Ur Specific [place] Urine Protein Urine Glucose (UA) Urine Ketones Urine Blood Urine Nitrite Urine Bilirubin Urine Urobilinogen Ur Leukocyte Esterase Urine Microscopic RBC Urine Microscopic WBC Ur Squamous Epith Cells Urine Bacteria Urine Test Urine Opiates Screen Ur Oxycodone Screen Urine Methadone Screen Ur Propoxyphene Screen Ur Barbiturates Screen U Tricyclic Antidepress Ur Phencyclidine Scrn Ur Amphetamine Screen U Methamphetamines Scrn U Benzodiazepines Scrn Urine Cocaine Screen U Cannabinoids Screen Influ A Molecular Assay Influ B Molecular Assay SARS CoV-2 RNA Rapid KEELY 08/13/22 08/13/22 08/13/22 10:06 10:06 10:10 WBC RBC Hgb Hct MCV MCH MCHC RDW Coeff of Faviola Plt Count Immature Gran % (Auto) Neut % (Auto) Lymph % (Auto) [place] % (Auto) Eos % (Auto) Baso % (Auto) Neut # (Auto) Lymph # (Auto) [place] # (Auto) Eos # (Auto) Baso # (Auto) Immature Gran # (Auto) Sodium Potassium Chloride Carbon Dioxide Anion Gap BUN Creatinine Estimated GFR (MDRD) BUN/Creatinine Ratio Glucose Lactic Acid Calcium Total Bilirubin AST ALT Alkaline Phosphatase Total Protein Albumin Globulin Albumin/Globulin Ratio Serum , Qual Negative Urine Color Urine Clarity Urine pH Ur Specific [place] Urine Protein Urine Glucose (UA) Urine Ketones Urine Blood Urine Nitrite Urine Bilirubin Urine Urobilinogen Ur Leukocyte Esterase Urine Microscopic RBC Urine Microscopic WBC Ur Squamous Epith Cells Urine Bacteria Urine Test Urine Opiates Screen Ur Oxycodone Screen Urine Methadone Screen Ur Propoxyphene Screen Ur Barbiturates Screen U Tricyclic Antidepress Ur Phencyclidine Scrn Ur Amphetamine Screen U Methamphetamines Scrn U Benzodiazepines Scrn Urine Cocaine Screen U Cannabinoids Screen Influ A Molecular Assay Negative by naat Influ B Molecular Assay Negative by naat SARS CoV-2 RNA Rapid KEELY Negative 08/13/22 08/13/22 08/13/22 10:45 10:45 10:55 WBC RBC Hgb Hct MCV MCH MCHC RDW Coeff of Faviola Plt Count Immature Gran % (Auto) Neut % (Auto) Lymph % (Auto) [place] % (Auto) Eos % (Auto) Baso % (Auto) Neut # (Auto) Lymph # (Auto) [place] # (Auto) Eos # (Auto) Baso # (Auto) Immature Gran # (Auto) Sodium Potassium Chloride Carbon Dioxide Anion Gap BUN Creatinine Estimated GFR (MDRD) BUN/Creatinine Ratio Glucose Lactic Acid Calcium Total Bilirubin AST ALT Alkaline Phosphatase Total Protein Albumin Globulin Albumin/Globulin Ratio Serum , Qual Urine Color Dark Urine Clarity Clear Urine pH 6.0 Ur Specific [place] 1.020 Urine Protein 3+ H Urine Glucose (UA) Trace H Urine Ketones 3+ H Urine Blood 2+ H Urine Nitrite Positive H Urine Bilirubin 2+ H Urine Urobilinogen >=8.0 Ur Leukocyte Esterase Trace H Urine Microscopic RBC 10-20 Urine Microscopic WBC 10-20 Ur Squamous Epith Cells 0-2 Urine Bacteria 1+ Urine Test Negative Urine Opiates Screen Negative Ur Oxycodone Screen Negative Urine Methadone Screen Negative Ur Propoxyphene Screen Negative Ur Barbiturates Screen Negative U Tricyclic Antidepress Negative Ur Phencyclidine Scrn Negative Ur Amphetamine Screen Negative U Methamphetamines Scrn Negative U Benzodiazepines Scrn Negative Urine Cocaine Screen Negative U Cannabinoids Screen Negative Influ A Molecular Assay Influ B Molecular Assay SARS CoV-2 RNA Rapid KEELY Orders Category Date Time Status CBC W/ AUTO DIFF Stat LAB 08/13/22 10:06 Completed CMP [COMPREHENSIVE METABOLIC PANEL] Stat LAB 08/13/22 10:06 Completed DRUG SCREEN, URINE, RAPID Stat LAB 08/13/22 10:45 Completed FLU A/B MOLECULAR Stat LAB 08/13/22 10:10 Completed HCG QUALITATIVE [SERUM ] Stat LAB 08/13/22 10:06 Completed LACTIC ACID Stat LAB 08/13/22 10:06 Completed RAPID STREP SCREEN [MOLECULAR GROUP A STREP] Stat LAB 08/13/22 10:06 Completed SARS COV-2 RNA RAPID KEELY Stat LAB 08/13/22 10:06 Completed URINALYSIS C & S IF INDICATED Stat LAB 08/13/22 10:45 Completed URINE CULTURE Stat LAB 08/13/22 11:10 Received URINE Stat LAB 08/13/22 10:55 Completed Ketorolac Tromethamine [Toradol] MEDS 08/13/22 09:56 Discontinued 30 mg IVP ONCE ONE Ondansetron HCl/Pf [Zofran 4 mg/2 ml] MEDS 08/13/22 10:26 Discontinued 4 mg IVP ONCE ONE Potassium Chloride [K-Dur] MEDS 08/13/22 10:26 Discontinued 40 meq PO ONCE ONE Sodium Chloride 0.9% [Sodium Chloride] 1,000 ml MEDS 08/13/22 09:56 Discontinued IV BOLUS CHEST, 1V AP ONLY Stat RADS 08/13/22 09:[address] ABDOMEN/PELVIS WO CONTRAST Stat RADS 08/13/22 11:32 Completed Medications Discontinued Medications Generic Name Dose Route Start Last Admin Trade Name Freq PRN Reason Stop Dose Admin Sodium Chloride 1,000 mls @ 1,000 mls/hr 08/13/22 09:56 08/13/22 10:41 Sodium Chloride IV 08/13/22 10:55 1,000 mls/hr BOLUS STA Administration Ketorolac Tromethamine 30 mg 08/13/22 09:56 08/13/22 10:41 Ketorolac Tromethamine 30 Mg/Ml Vial IVP 08/13/22 09:57 30 mg ONCE ONE Administration Ondansetron HCl 4 mg 08/13/22 10:26 08/13/22 10:41 Ondansetron Hcl/Pf 4 Mg/2 Ml Sdv IVP 08/13/22 10:27 4 mg ONCE ONE Administration Potassium Chloride 40 meq 08/13/22 10:26 08/13/22 10:40 Potassium Chloride 20 Meq Tab PO 08/13/22 10:27 40 meq ONCE ONE Administration Vital Signs: Temp Pulse Resp BP Pulse Ox 08/13/22 08:35 99 F 130 H 17 120/99 H 98 Discharge Plan Discharge Patient Disposition: ADMITTED INPATIENT Discharge Problem: Pyelonephritis Prescriptions: No Action No Reported Medications 0 Qty: 0 Did you review [place] PERSONAL CARE ASSISTANT for ALL controlled substances?: Not Applicable ED Provider: LUCINDA LOVE Condition: Stable Physician Progress Note: []pt full admit to hospitalist for pyelonephritis and low potassium
[2022-08-13 10:13] LABS: BASOPHILS % (AUTO) 0.1 % (0.0-3.0); HEMATOCRIT 33.9 % (37.0-47.0); HEMOGLOBIN 11.3 g/dl (12.0-16.0); IMMATURE GRANULOCYTE # (AUTO) 0.1 (0.0-1.0); IMMATURE GRANULOCYTE % (AUTO) 0.4 % (0.0-5.0); LYMPHOCYTES # (AUTO) 0.8 K/uL (0.60-3.4); LYMPHOCYTES % (AUTO) 4.8 (10.0-50.0); MEAN CORPUSCULAR HEMOGLOBIN 26.7 pg (27.0-31.0); MEAN CORPUSCULAR HGB CONC 33.3 (31.8-35.4); MONOCYTES # (AUTO) 1.2 K/uL (0.4-2.0); MONOCYTES % (AUTO) 7.3 (0-10); NEUTROPHILS # (AUTO) 13.9 K/ul (2.0-6.9); NEUTROPHILS % (AUTO) 87.4 % (42.2-75.2); PLATELET COUNT 175 10^3/uL (140-440); RDW COEFFICIENT OF VARIATION 14.9 % (11.6-14.8); RED BLOOD COUNT 4.24 10^6/ul (4.20-5.40); WHITE BLOOD COUNT 15.96 K/ul (4.6-10.2)
[2022-08-13 10:24] LABS: ALANINE AMINOTRANSFERASE 22.1 U/L (0-35); ALBUMIN 3.98 g/dL (3.5-5.0); ALKALINE PHOSPHATASE 84.3 U/L (38-126); ASPARTATE AMINO TRANSFERASE 25.5 U/L (14-36); BILIRUBIN,TOTAL 1.37 mg/dL (0.2-1.3); BLOOD UREA NITROGEN 11.6 mg/dL (7-17); CALCIUM 8.21 mg/dL (8.4-10.2); CARBON DIOXIDE 24.1 mmol/L (22-30.0); CHLORIDE 101.6 mmol/L (98-107); CREATININE 0.85 mg/dL (0.60-1.30); GLUCOSE 150.3 mg/dL (74-106); POTASSIUM 2.87 mmol/L (3.5-5.1); TOTAL PROTEIN 7.47 g/dL (6.3-8.2)
[2022-08-13] MEDS ORDERED: ZOFRAN 4 MG/2 ML IVP ONE (10:26)
[2022-08-13] MEDS ORDERED: K-DUR PO ONE (10:26)
--- NOTE | 2022-08-13 10:26 | DI ---
EXAM: SINGLE VIEW CHEST. HISTORY: Weakness COMPARISON: None. FINDINGS: The heart is normal in size. Pulmonary vascularity is within normal limits. No focal airsp noreen opacity or pleural effusion is seen. Osseous structures are unremarkable. IMPRESSION: No acute cardiopulmonary findings.
[2022-08-13 10:30] LABS: MOLECULAR FLU A NEGATIVE BY NAAT (NEGATIVE); MOLECULAR FLU B NEGATIVE BY NAAT (NEGATIVE)
[2022-08-13 10:47] LABS: SARS COV-2 RNA RAPID NAAT NEGATIVE (NEGATIVE)
[2022-08-13 11:04] LABS: BILIRUBIN,URINE 2+ (NEGATIVE); CLARITY,URINE Clear (CLEAR); COLOR,URINE Dark (YELLOW); GLUCOSE, URINE (UA) Trace (NEGATIVE); KETONES,URINE 3+ (NEGATIVE); LEUKOCYTE ESTERASE ,URINE Trace (NEGATIVE); NITRITE,URINE Positive (NEGATIVE); PROTEIN,URINE 3+ (NEGATIVE); URINE, BLOOD 2+ (NEGATIVE); UROBILINOGEN,URINE >=8.0 (0.2)
[2022-08-13 11:10] LABS: BACTERIA,URINE 1+ (NOT PRESENT); SQUAMOUS EPITHELIAL CELL,UR 0-2 (0-5)
[2022-08-13 11:13] LABS: AMPHETAMINE SCREEN,URINE NEGATIVE (NEGATIVE); BARBITURATE SCREEN,URINE NEGATIVE (NEGATIVE); BENZODIAZEPINES SCREEN,URINE NEGATIVE (NEGATIVE); CANNABINOID SCREEN,URINE NEGATIVE (NEGATIVE); COCAIN SCREEN,URINE NEGATIVE (NEGATIVE); METHADONE URINE SCREEN NEGATIVE (NEGATIVE); METHAMPHETAMINES SCREEN,URINE NEGATIVE (NEGATIVE); OPIATE SCREEN,URINE NEGATIVE (NEGATIVE); OXYCODONE URINE SCREEN NEGATIVE (NEGATIVE); PHENCYCLIDINE SCREEN,URINE NEGATIVE (NEGATIVE); PROPOXYPHENE URINE SCREEN NEGATIVE (NEGATIVE); TRICYCLIC ANTIDEPRESSANTS URIN NEGATIVE (NEGATIVE)
[2022-08-13 11:29] LABS: SERUM PREGNANCY NEGATIVE (NEGATIVE)
[2022-08-13 11:58] LABS: URINE PREGNANCY TEST NEGATIVE (NEGATIVE)
--- NOTE | 2022-08-13 12:03 | CT ---
EXAM: CT SCAN OF THE ABDOMEN AND PELVIS WITHOUT CONTRAST HISTORY: pain TECHNIQUE: Imaging of the abdomen pelvis was performed without contrast. 2.5 mm thin axial images a nd coronal and sagittal reconstructions were obtained. Comparison CT scan of the abdomen and pelvis dated 04/29/2018. FINDINGS: The patient has had previous cholecystectomy. No acute abnormalities are seen within the liver, spleen. There is reticulation of the fat seen surrounding the right kidney. There is mild di latation of the proximal right ureter. No definite calculi are seen within the right ureter. Ill-de fined hypodense changes are seen along the anterior upper pole of the right kidney seen on axial imag e number 64. The small and large bowel loops are normal caliber. There is no free air. No retroper itoneal abnormalities are seen. There has been previous appendectomy. Scattered diverticula are see n within the sigmoid colon without acute inflammation. Lung bases are clear. No lytic or blastic le sions are seen within the osseous structures. IMPRESSION: There is mild reticulation of the fat seen surrounding the right kidney and the findings may represent recent passage of a right ureteral calculus. No definite residual obstructing uretera l calculi are seen. Other considerations would include acute right pyelonephritis. Diverticular disease of the sigmoid colon without acute inflammation. Limited evaluation without intravenous contrast. All CT scans are performed using dose optimization techniques as appropriate to the performed exam an d include at least one of the following: Automated exposure control, adjustment of the mA and/or kV according t o size, and the use of iterative reconstruction technique.
[2022-08-13] MEDS ORDERED: ROCEPHIN 1 GM/50 ML D5W 1 GM/50 ML BAG IV ONE (12:24)
[2022-08-13] MEDS ORDERED: ZOFRAN 4 MG/2 ML IVP PRN (12:25)
[2022-08-13] MEDS: SODIUM CHLORIDE 1,000 ML IV SCH (13:29)
[2022-08-13] MEDS: TYLENOL PO PRN ×2 (14:11→21:05)
[2022-08-13] MEDS: MORPHINE 4 MG/ML SYRINGE IVP PRN (18:36)
[2022-08-13] MEDS: MOTRIN PO PRN (22:08)
[2022-08-14] MEDS: MORPHINE 4 MG/ML SYRINGE IVP PRN ×3 (04:55→19:36)
[2022-08-14] MEDS: SODIUM CHLORIDE 1,000 ML IV SCH ×2 (05:01→17:40)
[2022-08-14 05:15] LABS: BASOPHILS % (AUTO) 0.2 % (0.0-3.0); EOSINOPHILS % (AUTO) 0.1 % (0.0-7.0); HEMATOCRIT 31.6 % (37.0-47.0); HEMOGLOBIN 10.4 g/dl (12.0-16.0); IMMATURE GRANULOCYTE # (AUTO) 0.1 (0.0-1.0); IMMATURE GRANULOCYTE % (AUTO) 0.7 % (0.0-5.0); LYMPHOCYTES # (AUTO) 0.8 K/uL (0.60-3.4); LYMPHOCYTES % (AUTO) 4.3 (10.0-50.0); MEAN CORPUSCULAR HEMOGLOBIN 26.5 pg (27.0-31.0); MEAN CORPUSCULAR HGB CONC 32.9 (31.8-35.4); MEAN CORPUSCULAR VOLUME 80.6 fl (81.0-99.0); MONOCYTES # (AUTO) 1.4 K/uL (0.4-2.0); MONOCYTES % (AUTO) 7.9 (0-10); NEUTROPHILS # (AUTO) 15.7 K/ul (2.0-6.9); NEUTROPHILS % (AUTO) 86.8 % (42.2-75.2); PLATELET COUNT 152 10^3/uL (140-440); RDW COEFFICIENT OF VARIATION 15.2 % (11.6-14.8); RED BLOOD COUNT 3.92 10^6/ul (4.20-5.40); WHITE BLOOD COUNT 18.01 K/ul (4.6-10.2)
[2022-08-14 05:27] LABS: ALANINE AMINOTRANSFERASE 19.3 U/L (0-35); ALBUMIN 3.41 g/dL (3.5-5.0); ALKALINE PHOSPHATASE 78.3 U/L (38-126); ASPARTATE AMINO TRANSFERASE 22.7 U/L (14-36); BILIRUBIN,TOTAL 1.34 mg/dL (0.2-1.3); BLOOD UREA NITROGEN 12.3 mg/dL (7-17); CALCIUM 7.67 mg/dL (8.4-10.2); CARBON DIOXIDE 21.9 mmol/L (22-30.0); CHLORIDE 105.5 mmol/L (98-107); CREATININE 0.85 mg/dL (0.60-1.30); GLUCOSE 119.4 mg/dL (74-106); POTASSIUM 3.29 mmol/L (3.5-5.1); TOTAL PROTEIN 6.99 g/dL (6.3-8.2)
--- NOTE | 2022-08-14 08:27 | PCM.PROG ---
Date Seen by Provider: 08/14/22 Time Seen by Provider: 08:24 Subjective: Still with some abdominal pain, though improving. Tolerating PO intake. Several fever spikes during the night. Objective: Vitals: T=97.8 F, P=126, R=15, CG=173/41, SPO2=94 Appears acutely ill. Alert and in NAD. HEENT: [] Neck: [] Lungs: [] Clear. BS equal. CVS: [] Sinus tachycardia. Abdomen: [] Mild to moderate right CVA tenderness. Extremities: [] No edema. Neurological: [] Alert and oriented. Skin: [] Lab/Tests/Diagnostic Imaging: [] (1) Pyelonephritis: Status: Acute Code(s): N12 - Tubulo-interstitial nephritis, not specified as acute or chronic SNOMED Code(s): 05977102 Assessment: Final cultures pending. Plan: Will increase rocephin to 2gms Q24h.
[2022-08-14] MEDS: ZOFRAN 4 MG/2 ML IVP PRN (08:54)
[2022-08-14] MEDS ORDERED: ROCEPHIN 1 GM/50 ML D5W 1 GM/50 ML BAG IV SCH (09:00)
[2022-08-14] MEDS: K-DUR PO SCH (09:14)
[2022-08-14] MEDS: ROCEPHIN 2 GM VIAL 2 GM in SODIUM CHLORIDE 100ML 100 ML IV SCH (09:15)
[2022-08-14] MEDS: TYLENOL PO PRN ×2 (13:34→21:35)
[2022-08-15] MEDS: TYLENOL PO PRN ×2 (04:05→16:46)
[2022-08-15] MEDS: SODIUM CHLORIDE 1,000 ML IV SCH ×2 (04:09→21:09)
[2022-08-15 05:25] LABS: BASOPHILS % (AUTO) 0.3 % (0.0-3.0); EOSINOPHILS # (AUTO) 0.1 K/ul (0.0-0.7); EOSINOPHILS % (AUTO) 0.6 % (0.0-7.0); HEMATOCRIT 27.1 % (37.0-47.0); IMMATURE GRANULOCYTE # (AUTO) 0.1 (0.0-1.0); IMMATURE GRANULOCYTE % (AUTO) 0.4 % (0.0-5.0); LYMPHOCYTES # (AUTO) 1.6 K/uL (0.60-3.4); LYMPHOCYTES % (AUTO) 13.5 (10.0-50.0); MEAN CORPUSCULAR HEMOGLOBIN 26.6 pg (27.0-31.0); MEAN CORPUSCULAR HGB CONC 33.2 (31.8-35.4); MEAN CORPUSCULAR VOLUME 80.2 fl (81.0-99.0); MONOCYTES % (AUTO) 8.5 (0-10); NEUTROPHILS # (AUTO) 8.9 K/ul (2.0-6.9); NEUTROPHILS % (AUTO) 76.7 % (42.2-75.2); PLATELET COUNT 143 10^3/uL (140-440); RDW COEFFICIENT OF VARIATION 15.3 % (11.6-14.8); RED BLOOD COUNT 3.38 10^6/ul (4.20-5.40); WHITE BLOOD COUNT 11.59 K/ul (4.6-10.2)
[2022-08-15 05:40] LABS: ALANINE AMINOTRANSFERASE 18.1 U/L (0-35); ALBUMIN 3.08 g/dL (3.5-5.0); ALKALINE PHOSPHATASE 77.1 U/L (38-126); ASPARTATE AMINO TRANSFERASE 19.9 U/L (14-36); BILIRUBIN,TOTAL 0.59 mg/dL (0.2-1.3); BLOOD UREA NITROGEN 8.6 mg/dL (7-17); CALCIUM 7.71 mg/dL (8.4-10.2); CHLORIDE 106.7 mmol/L (98-107); CREATININE 0.71 mg/dL (0.60-1.30); POTASSIUM 3.33 mmol/L (3.5-5.1); TOTAL PROTEIN 6.6 g/dL (6.3-8.2)
[2022-08-15] MEDS: MORPHINE 4 MG/ML SYRINGE IVP PRN ×2 (09:11→16:34)
[2022-08-15] MEDS: ZOFRAN 4 MG/2 ML IVP PRN (09:11)
[2022-08-15] MEDS: K-DUR PO SCH ×2 (09:53)
[2022-08-15] MEDS: ROCEPHIN 2 GM VIAL 2 GM in SODIUM CHLORIDE 100ML 100 ML IV SCH (09:53)
--- NOTE | 2022-08-15 13:31 | PCM.PROG ---
Date Seen by Provider: 08/15/22 Time Seen by Provider: 13:29 Subjective: dx. pyelonephritis, hypokalemia Objective: Vitals: T=100 F, P=110, R=18, RA=813/65, SPO2=93 HEENT: []conjunctiva clear Neck: []supple Lungs: [] no respiratory distress CVS: [] Abdomen: []nondistended Extremities: []jem Neurological: []alert Skin: []pink Lab/Tests/Diagnostic Imaging: [] K+ > 3 (1) Pyelonephritis: Status: Acute Code(s): N12 - Tubulo-interstitial nephritis, not specified as acute or chronic SNOMED Code(s): 68219871 Plan: add levaquin, if pt is taking less pain medicine, discharge home tomorrow on oral antibiotics, o/w consider repeat CT
[2022-08-15] MEDS: LEVAQUIN 750 MG/150 ML D5W 750 MG/150 ML BAG IV SCH (13:44)
[2022-08-15] MEDS: MOTRIN PO PRN (20:25)
[2022-08-16] MEDS: MORPHINE 4 MG/ML SYRINGE IVP PRN (01:34)
[2022-08-16 05:24] LABS: BASOPHILS % (AUTO) 0.4 % (0.0-3.0); EOSINOPHILS # (AUTO) 0.2 K/ul (0.0-0.7); HEMATOCRIT 23.5 % (37.0-47.0); HEMOGLOBIN 7.9 g/dl (12.0-16.0); IMMATURE GRANULOCYTE % (AUTO) 0.2 % (0.0-5.0); LYMPHOCYTES # (AUTO) 1.7 K/uL (0.60-3.4); LYMPHOCYTES % (AUTO) 21.5 (10.0-50.0); MEAN CORPUSCULAR HEMOGLOBIN 26.3 pg (27.0-31.0); MEAN CORPUSCULAR HGB CONC 33.6 (31.8-35.4); MEAN CORPUSCULAR VOLUME 78.3 fl (81.0-99.0); MONOCYTES # (AUTO) 0.5 K/uL (0.4-2.0); MONOCYTES % (AUTO) 5.9 (0-10); NEUTROPHILS # (AUTO) 5.6 K/ul (2.0-6.9); PLATELET COUNT 151 10^3/uL (140-440); RDW COEFFICIENT OF VARIATION 15.6 % (11.6-14.8); WHITE BLOOD COUNT 8.03 K/ul (4.6-10.2)
[2022-08-16 05:53] VITALS: BP 104/70; TEMP 98.4
[2022-08-16 05:53] LABS: ALANINE AMINOTRANSFERASE 19.8 U/L (0-35); ALBUMIN 3.32 g/dL (3.5-5.0); ALKALINE PHOSPHATASE 69.3 U/L (38-126); ASPARTATE AMINO TRANSFERASE 21.5 U/L (14-36); BILIRUBIN,TOTAL 0.44 mg/dL (0.2-1.3); BLOOD UREA NITROGEN 10.4 mg/dL (7-17); CALCIUM 7.69 mg/dL (8.4-10.2); CARBON DIOXIDE 23.4 mmol/L (22-30.0); CHLORIDE 108.9 mmol/L (98-107); CREATININE 0.56 mg/dL (0.60-1.30); GLUCOSE 85.9 mg/dL (74-106); POTASSIUM 3.59 mmol/L (3.5-5.1); SODIUM 138.3 mmol/L (134.5-145); TOTAL PROTEIN 6.97 g/dL (6.3-8.2)
[2022-08-16] MEDS: K-DUR PO SCH (09:04)
[2022-08-16] MEDS: LEVAQUIN 750 MG/150 ML D5W 750 MG/150 ML BAG IV SCH ×2 (09:05→09:14)
[2022-08-16] MEDS: ROCEPHIN 2 GM VIAL 2 GM in SODIUM CHLORIDE 100ML 100 ML IV SCH (09:14)
--- NOTE | 2022-08-16 09:19 | PCM.PROG ---
Date Seen by Provider: 08/16/22 Time Seen by Provider: 09:17 Subjective: Patient feeling much better. Less painful. Tolerating diet. Objective: Vitals: T=98.4 F, P=76, R=19, WJ=982/70, SPO2=95 Patient looks well. HEENT: [] Neck: [] Lungs: [] Clear BS equal. CVS: [] RRR Abdomen: []Soft, nontender. No CVA tenderness. Extremities: [] Neurological: [] Skin: [] Lab/Tests/Diagnostic Imaging: [] (1) Pyelonephritis: Status: Acute Code(s): N12 - Tubulo-interstitial nephritis, not specified as acute or chronic SNOMED Code(s): 67737275 Assessment: Urine cultures with E. coli. Blood cultures negative. Plan: Discharge patient home on levaquin 750mg daily for one week.
--- NOTE | 2022-08-16 09:22 | PCM.DC ---
Final Diagnosis: acute pyelonephritis Physical Exam Appearance: Well-appearing, No pain distress and Well-nourished Ill-appearing: None Pain Distress: None Eyes: Not Examined ENT: Nose normal and Oropharynx normal Neck: Supple Respiratory: Airway patent, Breath sounds clear and Breath sounds equal Cardiovascular: RRR, No rub and No murmur GI/: Soft, Nontender, No masses and Bowel sounds normal Musculoskeletal: No edema Skin: Warm, Dry and Normal color Neurological: Alert and Oriented Psychiatric: Affect appropriate and Mood appropriate (1) Pyelonephritis: Status: Acute Code(s): N12 - Tubulo-interstitial nephritis, not specified as acute or chronic SNOMED Code(s): 39046218 Reason for Hospitalization: acute pyelonephritis Prognosis/Condition at Discharge: Condition at discharge was good. Medications at Discharge: Patient discharged on levaquin as well as same medications at admission. Education Provided to Patient and Family: pyelonephritis Follow-ups: Follow up with primary care provider in one week. Discharge Disposition: Home Hospital Course: Patient admitted with acute pyelonephritis. She was treated with IV rocephin and IV levaquin. Patient defervesced and improved clinically. No complications during hospitalization. Plan: Follow up in one week. Take levaquin as prescribed.
== END 2022-08-16 11:15 | disposition home or self-care (01) | DRG 690 ==
LOC: ED 08:34 → MEDSURG A 12:42
PROVIDERS: ADMIT Emergency Medicine Emergency Medical Services; ATTEND Surgery
DX: N12 Tubulo-interstitial nephritis, not specified as acute or chronic; Z03.89 Encounter for observation for other suspected diseases and conditions ruled out; Z86.19 Personal history of other infectious and parasitic diseases; Z20.822 Contact with and (suspected) exposure to COVID-19; E87.6 Hypokalemia; Z20.828 Contact with and (suspected) exposure to other viral communicable diseases; M79.10 Myalgia, unspecified site